=== PATIENT | male | born 1965 | race Caucasian/White ===

== ENCOUNTER 2023-06-23 14:20 | Emergency (ER) | payer MEDICAID, OTHER ==
[~2023-06-23] VITALS: Ht 177.8 cm; Wt 68.0 kg
[2023-06-23 14:45] VITALS: BP 148/84; TEMP 98.2; O2SAT 99
[2023-06-23] MEDS ORDERED: CYCL5TAB PO (15:25)
[2023-06-23] MEDS ORDERED: KETO10TA2 PO (15:25)
[2023-06-23] MEDS ORDERED: TRAM-351 PO (15:25)
[2023-06-23] MEDS ORDERED: ACETAMINOPHEN ES 500 MG TABLET ONE (15:40)
[2023-06-23] MEDS ORDERED: CYCLOBENZAPRINE 10 MG TABLET ONE (15:40)
[2023-06-23] MEDS ORDERED: IBUPROFEN 600 MG TABLET ONE (15:40)
[2023-06-23] MEDS: CYCLOBENZAPRINE 10 MG TABLET PO ONE (15:53)
[2023-06-23] MEDS: IBUPROFEN 600 MG TABLET PO ONE (15:54)
[2023-06-23] MEDS: ACETAMINOPHEN ES 500 MG TABLET PO ONE (15:54)
== END 2023-06-23 15:48 | disposition home or self-care (01) ==
LOC: ER 14:20
DX: S60.221A Contusion of right hand, initial encounter (principal); S10.83XA Contusion of other specified part of neck, initial encounter; I10 Essential (primary) hypertension; E11.9 Type 2 diabetes mellitus without complications; Z60.2 Problems related to living alone; F10.10 Alcohol abuse, uncomplicated; F17.200 Nicotine dependence, unspecified, uncomplicated; X58.XXXA Exposure to other specified factors, initial encounter; Y93.89 Activity, other specified; Y92.89 Other specified places as the place of occurrence of the external cause; Y99.8 Other external cause status; Y90.9 Presence of alcohol in blood, level not specified
CPT/HCPCS: 73130-TC